=== PATIENT | female | born 2000 | race Caucasian/White ===

== ENCOUNTER 2023-04-10 06:28 | Day surgery (SDC) | payer MEDICAID ==
[2023-04-10] MEDS ORDERED: Lactated Ringers 1,000 ML IV SCH (07:00)
[2023-04-10] MEDS ORDERED: CEFAZOLIN 2 GM-D5W BAG** 2 GM/50 ML ML IV SCH (07:00)
[2023-04-10 07:07] VITALS: RESP 16
[2023-04-10] MEDS ORDERED: Zofran 4 MG/2 ML VIAL ONE (07:16)
[2023-04-10] MEDS ORDERED: Xylocaine-Mpf 2% 5 Ml Vial ONE (07:16)
[2023-04-10] MEDS ORDERED: Decadron 4 MG INJ ONE (07:16)
[2023-04-10] MEDS ORDERED: TORAdol 30 mg Injection ONE (07:16)
[2023-04-10] MEDS ORDERED: DIPRIVAN 200 MG/20 ML IV ONE ×2 (07:17→08:39)
[2023-04-10] MEDS ORDERED: Lactated Ringers 1,000 ML IV ONE (07:47)
[2023-04-10] MEDS ORDERED: Versed 2 MG/2 ML Injection ONE (08:20)
[2023-04-10] MEDS ORDERED: SUBLIMAZE 100 MCG/2 ML ONE ×2 (08:21→08:30)
[2023-04-10 09:55] VITALS: O2SAT 99
[2023-04-10 09:59] VITALS: BP 100/62; PULSE 59; TEMP 98.5
[2023-04-10] MEDS ORDERED: Rhogam Plus 300 MCG IM SCH (10:00)
--- NOTE | 2023-04-11 11:54 | OP ---
SURGERY DATE/TIME: 04/10/2023 0818 PREOPERATIVE DIAGNOSIS: Complete with retained products of conception. POSTOPERATIVE DIAGNOSIS: Complete with retained products of conception. PROCEDURE: Suction D&C. SURGEON: Diogo Casey D.O. CLIENT RETENTION SPECIALIST: Annita Harris clinical support tech. ANESTHESIA: General. ESTIMATED BLOOD LOSS: Minimal. COMPLICATIONS: None. INDICATIONS: The risks, benefits, indications and alternatives of the procedure were reviewed with the patient prior to procedure. The patient understood the risk of infection, bleeding, bowel injury, bladder injury, uterine perforation, pelvic infection and thromboembolic disorder associated with the surgery and desires to have this surgery as a possible means to alleviate her current medical condition. DESCRIPTION OF PROCEDURE AND FINDINGS: At this time the patient is taken to the operating room, given general sedation, placed in the dorsal lithotomy position, prepped and draped in the usual sterile fashion. A weighted speculum is then placed in the patient's vagina and the anterior lip of the cervix is grasped with a single tooth tenaculum. Endocervical dilators were advanced through the endocervical canal as a means to dilate the cervix. A #7 curved suction Vacurette was then placed into the fundus of the uterus where the machine was turned on for suctioning retrieving a moderate to extensive amount of products of conception. After complete suctioning the instrument was removed and the curette was then placed into the fundus of the uterus and curettage was performed in all quadrants of the uterus retrieving the remaining products of conception. From this point hemostasis was obtained. At this point all instruments were removed from the patient's vaginal region. The patient was then taken out of the dorsal lithotomy position, was taken out of anesthesia and was then taken to the recovery room in stable condition. All instruments and laps were accounted for x2.
== END 2023-04-10 10:05 | disposition home or self-care (01) ==
LOC: SDC 06:28
PROVIDERS: ATTEND Obstetrics & Gynecology
DX: O03.4 Incomplete spontaneous abortion without complication (principal)
CPT/HCPCS: 36415; 86901; J0690; J1100; J1885; J2250; J2405; J2704; J2790; J3010

== ENCOUNTER 2023-04-13 20:40 | Emergency (ER) | payer MEDICAID ==
--- NOTE | 2023-04-13 20:47 | ERPHSYRPT ---
- History of Present Illness Time Seen by Provider: 04/13/23 20:46 Source: patient Exam Limitations: no limitations Physician History: This is a 23-year-old white female patient who presents with bilateral lower extremity swelling and achiness after a D&C that was performed on 04/10/2023. Postoperatively, the patient had significant bleeding present and therefore was placed on tranexamic acid which slowed the bleeding significantly. She took 1 dose that evening and did not take another dose until this morning when she was having significant vaginal bleeding post D&C. Patient noticed her bilateral lower extremities swelling present approximately a day and a half ago and it has been persistently present. Her concern first was because of the pain that felt like her legs were being squeezed and also concerned there may be blood clot present. Patient is a daily smoker of cigarettes. She has no bleeding or clotting disorders. Occurred: days ago (1-2) Quality: constant Severity of Pain-Max: mild (To moderate) Severity of Pain-Current: mild (To moderate) Lower Extremities Pain: leg: bilateral, thigh: bilateral, foot: bilateral, an kle: bilateral Modifying Factors: Improves With: nothing Associated Symptoms: none Allergies/Adverse Reactions: No Known Drug Allergies Allergy (Verified 04/13/23 21:01) Home Medications: Tranexamic Acid 1,300 mg PO TID 04/13/23 [History] Travel Risk - International Travel Have you traveled outside of the country in past 3 weeks: No - Coronavirus Screening Are you exhibiting any of the following symptoms?: No Close contact with a COVID-19 positive Pt in past 14-21 Days: No - Review of Systems Constitutional: No Symptoms Eyes: No Symptoms Ears, Nose, & Throat: No Symptoms Respiratory: No Symptoms Cardiac: No Symptoms Abdominal/Gastrointestinal: No Symptoms Genitourinary Symptoms: No Symptoms Musculoskeletal: Other (Bilateral lower extremity swelling post D&C) Skin: No Symptoms Neurological: No Symptoms Psychological: No Symptoms Endocrine: No Symptoms Hematologic/Lymphatic: No Symptoms Immunological/Allergic: No Symptoms All Other Systems: Reviewed and Negative - Past Medical History Pertinent Past Medical History: Yes Neurological History: No Pertinent History ENT History: No Pertinent History Cardiac History: No Pertinent History Respiratory History: No Pertinent History Endocrine Medical History: No Pertinent History Musculoskeletal History: No Pertinent History GI Medical History: No Pertinent History History: No Pertinent History Psycho-Social History: No Pertinent History Female Reproductive Disorders: Other Other Medical History: COMPLETE MISCARRAGE WITH ERTAINED TISSUES - Past Surgical History Past Surgical History: Yes Neuro Surgical History: No Pertinent History Cardiac: No Pertinent History Respiratory: No Pertinent History Gastrointestinal: No Pertinent History Genitourinary: No Pertinent History Musculoskeletal: No Pertinent History Female Surgical History: No Pertinent History Other Surgical History: wisdom teeth - Social History Smoking Status: Current every day smoker How long have you smoked: 7 years Exposure to second hand smoke: Yes Drug Use: marijuana - Nursing Vital Signs Nursing Vital Signs: Initial Vital Signs Temperature 99 F 04/13/23 21:03 Pulse Rate 70 04/13/23 21:03 Respiratory Rate 16 04/13/23 21:03 Blood Pressure 116/64 04/13/23 21:03 O2 Sat by Pulse Oximetry 99 04/13/23 21:03 Pain Scale Pain Intensity 0 - Physical Exam General Appearance: no apparent distress, alert, anxiety, thin Eyes, Ears, Nose, Throat Exam: normal ENT inspection, moist mucous membranes Neck Exam: normal inspection, non-tender, supple, full range of motion Cardiovascular/Respiratory Exam: chest non-tender, no respiratory distress Gastrointestinal/Abdominal Exam: non-tender Back Exam: normal inspection, normal range of motion, No CVA tenderness, No vertebral tenderness Hips Exam: bilateral: non-tender, normal inspection, normal range of motion, no evidence of injury Legs Exam: bilateral leg: normal range of motion, no evidence of injury, soft tissue tenderness, swelling (Mild) Knees Exam: bilateral knee: non-tender, normal inspection, normal range of motion, no evidence of injury Ankle Exam: bilateral ankle: normal range of motion, no evidence of injury, soft tissue tenderness, swelling (Mild) Foot Exam: bilateral foot: normal range of motion, no evidence of injury, soft tissue tenderness, swelling (Mild) Neuro/Tendon Exam: normal sensation, normal motor functions, normal tendon functions, responds to pain, no evidence tendon injury Mental Status Exam: alert, oriented x 3, cooperative Skin Exam: normal color, warm, dry SpO2 Interpretation: normal O2 Delivery: Room Air - Course Nursing assessment & vital signs reviewed: Yes Ordered Tests: Active Orders 24 hr Category Date Time Status IV Insertion STAT Care 04/13/23 21:37 Active BMP Stat Lab 04/13/23 21:40 Completed CBC W DIFF Stat Lab 04/13/23 21:40 Completed D-DIMER QUANTITATIVE Stat Lab 04/13/23 21:40 Completed Lab/Rad Data: Laboratory Result Diagrams 04/13/23 21:40 04/13/23 21:40 Laboratory Results 04/13/23 04/13/23 04/13/23 Range/Units 21:40 21:40 21:40 WBC 7.8 (4.0-10.5) x10^3/uL RBC 3.25 L (4.1-5.4) x10^6/uL Hgb 10.7 L (12.0-16.0) g/dL Hct 31.2 L (35-47) % MCV 96.0 (78-100) fL MCH 32.9 H (26-32) pg MCHC 34.3 (32-36) g/dL RDW 12.8 (11.5-14.0) % Plt Count 196 (150-450) x10^3/uL MPV 10.7 (7.5-11.0) fL Gran % 53.4 (36.0-66.0) % Immature Gran % (Auto) 0.4 (0.00-0.4) % Nucleat RBC Rel Count 0.0 (0.00-0.1) % Eos # (Auto) 0.18 (0-0.5) x10^3/uL Immature Gran # (Auto) 0.03 (0.00-0.03) x10^3u/L Absolute Lymphs (auto) 2.57 (1.0-4.6) x10^3/uL Absolute Monos (auto) 0.81 (0.0-1.3) x10^3/uL Absolute Nucleated RBC 0.00 (0.00-0.01) x10^3u/L Lymphocytes % 33.0 (24.0-44.0) % Monocytes % 10.4 (0.0-12.0) % Eosinophils % 2.3 (0.00-5.0) % Basophils % 0.5 (0.0-0.4) % Absolute Granulocytes 4.15 (1.4-6.9) x10^3/uL Basophils # 0.04 (0-0.4) x10^3/uL D-Dimer 0.45 (0.0-0.50) mg/L Sodium 141 (137-145) mmol/L Potassium 3.6 (3.5-5.1) mmol/L Chloride 111 H (98-107) mmol/L Carbon Dioxide 24 (22-30) mmol/L Anion Gap 9.0 (5-15) MEQ/L BUN 11 (7-17) mg/dL Creatinine 0.81 (0.52-1.04) mg/dL Estimated GFR > 60.0 ML/MIN Glucose 104 (74-106) mg/dL Calcium 8.6 (8.4-10.2) mg/dL - Progress Progress Note: 04/13/23 21:43 This patient's medical issue is 1 of low to moderate complexity. Level complexity is based on review of the patient's past medical history, review the patient's medication list, review of the patient's drug allergy list, history of present illness and physical findings on examination. Work-up in this patient is to place an IV, obtain a D-dimer, CBC and BMP. If the D-dimer is elevated we will order an ultrasound of her bilateral lower extremities to evaluate for DVT. If the D-dimer is in the normal range patient was given instructions to massage her legs 2-3 times a day and use Tylenol and ibuprofen for pain control. 04/13/23 22:08 I interpreted the results of the patient's blood work and patient does not have an acute, emergent medical issue. Her D-dimer test is in the normal range. Hemoglobin is slightly low at 10.7. Patient does not require an ultrasound of bilateral lower extremities. Counseled pt/family regarding: lab results, diagnosis, need for follow-up Medical Desision Making - Independent Historian Additional History obtained from: Mother - Diagnostic Testing Diagnostic test were ordered, analyzed, and reviewed by me: Yes - Risk of complications Minimal Risk: Minimal risk of morbidity - Departure Departure Disposition: Home Clinical Impression: Swelling of both lower extremities Condition: Stable Critical Care Time: No Referrals: DOCTOR,NO FAMILY [Primary Care Provider] - Follow up/PCP as directed Additional Instructions: Drink plenty of fluids. Use Tylenol and ibuprofen for pain control. Elevate your legs above the level of your heart when not up and ambulating. Call your primary care provider on 04/16/2023 to make arranges for follow-up appointment in the next 3 days. Return to the emergency department if symptoms worsen.
[2023-04-13 21:10] VITALS: RESP 16; TEMP 99; O2SAT 99
[2023-04-13 21:47] LABS: Absolute Neutrophil Ct (ANC) 4.15 x10^3/uL (1.4-6.9); BASOPHIL % 0.5 % (0.0-0.4); Basophil (Absolute #) 0.04 x10^3/uL (0-0.4); Eosinophil % 2.3 % (0.00-5.0); Eosinophil (Absolute #) 0.18 x10^3/uL (0-0.5); Hematocrit 31.2 % (35-47); Hemoglobin 10.7 g/dL (12.0-16.0); IMMATURE GRAN # 0.03 x10^3u/L (0.00-0.03); IMMATURE GRAN % 0.4 % (0.00-0.4); Lymphocyte (Absolute #) 2.57 x10^3/uL (1.0-4.6); Mean Corpuscular Hemoglobin 32.9 pg (26-32); Mean Corpuscular Hgb Concent. 34.3 g/dL (32-36); Mean Platelet Volume 10.7 fL (7.5-11.0); Monocyte (Absolute #) 0.81 x10^3/uL (0.0-1.3); Monocytes % 10.4 % (0.0-12.0); Neutrophil % 53.4 % (36.0-66.0); Platelet Count 196 x10^3/uL (150-450); Red Blood Count 3.25 x10^6/uL (4.1-5.4); Red Cell Distribution Width 12.8 % (11.5-14.0); White Blood Count 7.8 x10^3/uL (4.0-10.5)
[2023-04-13 22:04] LABS: BLOOD UREA NITROGEN 11 mg/dL (7-17); CHLORIDE 111 mmol/L (98-107); Calcium 8.6 mg/dL (8.4-10.2); Carbon Dioxide 24 mmol/L (22-30); Creatinine 1 0.81 mg/dL (0.52-1.04); EST GLOMERULAR FILTRATION RATE > 60.0 ML/MIN; Glucose 104 mg/dL (74-106); Potassium 3.6 mmol/L (3.5-5.1); SODIUM 141 mmol/L (137-145)
[2023-04-13 22:11] VITALS: BP 102/51; PULSE 72
== END 2023-04-13 22:17 | disposition home or self-care (01) ==
LOC: ED 20:40
DX: M79.89 Other specified soft tissue disorders (principal); Z79.899 Other long term (current) drug therapy; Z72.0 Tobacco use
CPT/HCPCS: 36000; 36415; 80048; 85025; 85379; 99283

== ENCOUNTER 2023-04-14 18:57 | Emergency (ER) | payer MEDICAID ==
[2023-04-14 19:52] VITALS: TEMP 98.3
[2023-04-14] MEDS ORDERED: Sodium Chloride 0.9% 1000 ML 1,000 ML IV STA (20:04)
[2023-04-14] MEDS ORDERED: Sodium Chloride 0.9% 1000 ML 1,000 ML ONE (20:06)
--- NOTE | 2023-04-14 20:21 | ERPHSYRPT ---
- History of Present Illness Time Seen by Provider: 04/14/23 19:50 Source: patient Exam Limitations: no limitations Patient Subjective Stated Complaint: pt had a D&C per Dr Casey on 04/10/23 and she had "very heavy bleeding and clots after we left the hospital" and MD was notified and pt was given a script for TXA which she took 1 time and bleeding returned to just spotting. yesterday bleeding was increased more than spotting but "not concerning amount" so she took the TXA twice yesterday and twice today, when she woke up at 1829 "there was blood everywhere and a lot of really big clots" so they called Dr Casey who told them to come to the ED for an ULS. pt states she has been changing her pad approx every 20mins. pt also states since 1829 she has had 10/10 pain to bilat lower abd that radiates thru pelvis and rectum that she describes "like a gas bubble but like in my butt instead of my belly" Triage Nursing Assessment: pt ambulated to room 7 independently with slow steady gait. pt is alert and oriented times three, able to speak in complete sentences, able to move all extremities, and with resp even and unlabored. skin warm dry and intact. abd soft, flat, nondistended, and tender to touch with positive bowel sounds in all quadrants. pt states last BM was this morning and it was normal for her. denies vomiting, sob, difficulty breathing, lightheadedness, dizziness, or other ill feelings. reports since has been slightly nauseated since 1829. Physician History: 23yo F presents for vaginal bleeding that started today around 18:00. Pt is POD 5 following D&C by Dr Casey for miscarriage. Pt states she woke up from a nap and had significant amount of dark red blood and clots in her underwear. Pt reports several other episodes of heavy bleeding since her procedure, was prescribed TXA by Dr Casey which did help initially. Pt currently reports some mild suprapubic pain but denies vaginal pain or recent trauma/intercourse. Pt denies cp, soa, n/v. Pt was seen in ED on 04/13 for LE edema that has since resolved. Timing/Duration: today, hour(s) (2) Activites at Onset: sleep Quality: cramping Onset Location: suprapubic Pain Radiation: none Severity of Pain-Max: mild Severity of Pain-Current: mild Prior abdominal problems: other (D&C on 04/10/[address] Casey) Sexual intercourse history: non-contributory Modifying Factors: Improves With: nothing Associated Symptoms: abdominal pain Allergies/Adverse Reactions: No Known Drug Allergies Allergy (Verified 04/14/23 19:29) Home Medications: Tranexamic Acid 1,300 mg PO TID 04/13/23 [History] Hx Tetanus, Diphtheria Vaccination/Date Given: Yes Hx Influenza Vaccination/Date Given: No Hx Pneumococcal Vaccination/Date Given: No Travel Risk - International Travel Have you traveled outside of the country in past 3 weeks: No - Coronavirus Screening Are you exhibiting any of the following symptoms?: No Close contact with a COVID-19 positive Pt in past 14-21 Days: No - Vaccine Status Have you recieved a Covid-19 vaccination: No - Review of Systems Constitutional: No Fever, No Chills Respiratory: No Cough, No Dyspnea Abdominal/Gastrointestinal: Abdominal Pain Genitourinary Symptoms: Vaginal Bleeding - Past Medical History Pertinent Past Medical History: Yes Neurological History: No Pertinent History ENT History: No Pertinent History Cardiac History: No Pertinent History Respiratory History: No Pertinent History Endocrine Medical History: No Pertinent History Musculoskeletal History: No Pertinent History GI Medical History: No Pertinent History History: No Pertinent History Psycho-Social History: No Pertinent History Female Reproductive Disorders: Other Other Medical History: COMPLETE MISCARRAGE WITH ERTAINED TISSUES - Past Surgical History Past Surgical History: Yes Neuro Surgical History: No Pertinent History Cardiac: No Pertinent History Respiratory: No Pertinent History Gastrointestinal: No Pertinent History Genitourinary: No Pertinent History Musculoskeletal: No Pertinent History Female Surgical History: Dilation & Curettage Other Surgical History: wisdom teeth - Social History Smoking Status: Current every day smoker How long have you smoked: 2015 Exposure to second hand smoke: Yes Drug Use: marijuana Patient Lives Alone: No - Female History Hx Last Menstrual Period: December 25 2022 Hx Now: No - Nursing Vital Signs Nursing Vital Signs: Initial Vital Signs Temperature 98.3 F 04/14/23 19:30 Pulse Rate 73 04/14/23 19:30 Respiratory Rate 16 04/14/23 19:30 Blood Pressure 138/93 04/14/23 19:30 O2 Sat by Pulse Oximetry 100 04/14/23 19:30 Pain Scale Pain Intensity 4 - Physical Exam General Appearance: no apparent distress, alert Respiratory Exam: normal breath sounds, lungs clear, No respiratory distress Cardiovascular Exam: regular rate/rhythm, normal heart sounds, normal peripheral pulses Gastrointestinal/Abdomen Exam: soft, tenderness (mild TTP over suprapubic region, uterus firm) Pelvic Exam: other (speculum exam - dark red blood in posterior fornix, small volume dark red blood per cervical os; uterus palpable, slightly boggy) SpO2: 100 Ordered Tests: Active Orders 24 hr Category Date Time Status IV Insertion STAT Care 04/14/23 20:04 Active PELVIS TRANS VAGINAL [US] Stat Exams 04/14/23 19:58 Completed CBC W DIFF Stat Lab 04/14/23 20:21 Completed CMP Stat Lab 04/14/23 20:21 Completed Medication Summary Discontinued Medications Generic Name Dose Route Start Last Admin Trade Name Jamesq PRN Reason Stop Dose Admin Sodium Chloride 1,000 mls @ 999 mls/hr 04/14/23 20:04 04/14/23 21:33 Sodium Chloride 0.9% 1000 Ml IV 04/14/23 21:04 Infused .Q1H1M STA Infusion Sodium Chloride Confirm 04/14/23 20:06 Sodium Chloride 0.9% 1000 Ml Administered 04/14/23 20:07 Dose 1,000 mls @ ud .ROUTE .STK-MED ONE Methylergonovine Maleate 0.2 mg 04/14/23 21:30 04/14/23 21:54 Methylergonovine Maleate 0.2 Mg/Ml Ml IM 04/14/23 21:31 0.2 mg ONCE ONE Administration Ondansetron HCl 4 mg 04/14/23 22:35 04/14/23 22:36 Ondansetron Hcl 4 Mg/2 Ml Vial IV 04/14/23 22:36 4 mg STAT ONE Administration Ondansetron HCl Confirm 04/14/23 22:35 Ondansetron Hcl 4 Mg/2 Ml Vial Administered 04/14/23 22:36 Dose 4 mg .ROUTE .STK-MED ONE Lab/Rad Data: Laboratory Result Diagrams 04/14/23 20:21 04/14/23 20:21 Laboratory Results 04/14/23 04/14/23 Range/Units 20:21 20:21 WBC 9.0 (4.0-10.5) x10^3/uL RBC 3.68 L (4.1-5.4) x10^6/uL Hgb 12.1 (12.0-16.0) g/dL Hct 35.8 (35-47) % MCV 97.3 (78-100) fL MCH 32.9 H (26-32) pg MCHC 33.8 (32-36) g/dL RDW 13.2 (11.5-14.0) % Plt Count 218 (150-450) x10^3/uL MPV 11.1 H (7.5-11.0) fL Gran % 61.4 (36.0-66.0) % Immature Gran % (Auto) 0.3 (0.00-0.4) % Nucleat RBC Rel Count 0.0 (0.00-0.1) % Eos # (Auto) 0.21 (0-0.5) x10^3/uL Immature Gran # (Auto) 0.03 (0.00-0.03) x10^3u/L Absolute Lymphs (auto) 2.43 (1.0-4.6) x10^3/uL Absolute Monos (auto) 0.79 (0.0-1.3) x10^3/uL Absolute Nucleated RBC 0.00 (0.00-0.01) x10^3u/L Lymphocytes % 26.9 (24.0-44.0) % Monocytes % 8.7 (0.0-12.0) % Eosinophils % 2.3 (0.00-5.0) % Basophils % 0.4 (0.0-0.4) % Absolute Granulocytes 5.53 (1.4-6.9) x10^3/uL Basophils # 0.04 (0-0.4) x10^3/uL Sodium 141 (137-145) mmol/L Potassium 4.1 (3.5-5.1) mmol/L Chloride 111 H (98-107) mmol/L Carbon Dioxide 25 (22-30) mmol/L Anion Gap 8.5 (5-15) MEQ/L BUN 12 (7-17) mg/dL Creatinine 0.74 (0.52-1.04) mg/dL Estimated GFR > 60.0 ML/MIN Glucose 94 (74-106) mg/dL Calcium 8.9 (8.4-10.2) mg/dL Total Bilirubin 0.30 (0.2-1.3) mg/dL AST 29 (14-36) U/L ALT 20 (0-35) U/L Alkaline Phosphatase 63 (38-126) U/L Serum Total Protein 7.0 (6.3-8.2) g/dL Albumin 4.1 (3.5-5.0) g/dL - Progress Progress: improved Air Movement: good Progress Note: I discussed pt case w/ Dr Casey who recommended giving methergine 0.2mg IM once in ED, then dc w/ 4 doses that can be taken q6h for bleeding, plan for f/u in his office on 04/16/23 US showed thickened endometrium, no ovarian torsion, no obvious retained products in uterus plan for dc home Blood Culture(s) Obtained: No Antibiotics given: No Discussed with Dr.: Other (Dr Casey) Will see patient in: office Counseled pt/family regarding: lab results, diagnosis, need for follow-up, rad results Medical Desision Making - Discussion of managment Care discussed with:: specialist (OB Dr Casey) Reviewed:: Test results, Need for additional workup Agreed on:: Treatment plan (methergine q6h prn 4 doses for bleeding, will see in office on sunday04/16/23), need for follow-up Will see patient: In office - Diagnostic Testing Diagnostic test were ordered, analyzed, and reviewed by me: Yes Radiological Interpretation: Reviewed by me, Teleradiologist Report - Risk of complications Low Risk: Low risk of morbidity from additional dx testing or treatment - Departure Departure Disposition: Home Clinical Impression: Vaginal bleeding Condition: Stable Critical Care Time: No Referrals: ADELINE CASEY DO [Primary Care Provider] - Follow up/PCP as directed Additional Instructions: Methergine 4 doses sent to pharmacy, can take every [address] Casey's office on Sunday at 10am to get scheduled for appointment
[2023-04-14 20:24] LABS: Absolute Neutrophil Ct (ANC) 5.53 x10^3/uL (1.4-6.9); BASOPHIL % 0.4 % (0.0-0.4); Basophil (Absolute #) 0.04 x10^3/uL (0-0.4); Eosinophil % 2.3 % (0.00-5.0); Eosinophil (Absolute #) 0.21 x10^3/uL (0-0.5); Hematocrit 35.8 % (35-47); Hemoglobin 12.1 g/dL (12.0-16.0); IMMATURE GRAN # 0.03 x10^3u/L (0.00-0.03); IMMATURE GRAN % 0.3 % (0.00-0.4); Lymphocyte (Absolute #) 2.43 x10^3/uL (1.0-4.6); Lymphocytes % 26.9 % (24.0-44.0); Mean Cell Volume 97.3 fL (78-100); Mean Corpuscular Hemoglobin 32.9 pg (26-32); Mean Corpuscular Hgb Concent. 33.8 g/dL (32-36); Mean Platelet Volume 11.1 fL (7.5-11.0); Monocyte (Absolute #) 0.79 x10^3/uL (0.0-1.3); Monocytes % 8.7 % (0.0-12.0); Neutrophil % 61.4 % (36.0-66.0); Platelet Count 218 x10^3/uL (150-450); Red Blood Count 3.68 x10^6/uL (4.1-5.4); Red Cell Distribution Width 13.2 % (11.5-14.0)
[2023-04-14 20:39] LABS: ALBUMIN 4.1 g/dL (3.5-5.0); ALKALINE PHOSPHATASE 63 U/L (38-126); ANION GAP 8.5 MEQ/L (5-15); BLOOD UREA NITROGEN 12 mg/dL (7-17); CHLORIDE 111 mmol/L (98-107); Calcium 8.9 mg/dL (8.4-10.2); Carbon Dioxide 25 mmol/L (22-30); Creatinine 1 0.74 mg/dL (0.52-1.04); EST GLOMERULAR FILTRATION RATE > 60.0 ML/MIN; Glucose 94 mg/dL (74-106); Potassium 4.1 mmol/L (3.5-5.1); SGOT/AST 29 U/L (14-36); SGPT/ALT 20 U/L (0-35); SODIUM 141 mmol/L (137-145)
--- NOTE | 2023-04-14 21:28 | XRAY ---
Indication: Vaginal bleeding. 5 days status post D&C. Two-dimensional transvaginal pelvic sonogram performed. Comparison: April 05, 2023 Uterus again retroverted measuring 7.9 x 4.9 x 5.5 cm. Previous intrauterine gestational sac absent consistent with recent D&C. Thickened endometrial stripe measuring 2.1 cm, probable blood products/clots. No endometrial cavity fluid collection. Right ovary measures 2.8 x 1.4 x 3.8 cm and left measures 3.3 x 1.9 x 2.7 cm. Normal follicular cysts in perfusion bilaterally. Tiny nonspecific left adnexa free fluid. No suspicious adnexal mass. Impression: Status post D&C with thickened endometrial stripe, probable blood products/clots. Tiny nonspecific left adnexa free fluid. Comment: Preliminary report was given.
[2023-04-14] MEDS ORDERED: Methergine IM ONE (21:30)
[2023-04-14] MEDS ORDERED: Zofran 4 MG/2 ML VIAL ONE (22:35)
[2023-04-14] MEDS ORDERED: Zofran 4 MG/2 ML VIAL IV ONE (22:35)
[2023-04-14 23:05] VITALS: PULSE 62
[2023-04-14 23:45] VITALS: BP 120/82; RESP 18
[2023-04-14 23:58] VITALS: O2SAT 100
== END 2023-04-15 00:03 | disposition home or self-care (01) ==
LOC: ED 18:57
DX: N93.9 Abnormal uterine and vaginal bleeding, unspecified (principal); R10.2 Pelvic and perineal pain; Z79.899 Other long term (current) drug therapy; Z28.310 Unvaccinated for COVID-19; Z72.0 Tobacco use
CPT/HCPCS: 36000; 36415; 76830; 80053; 85025; 96360; 96372; 96374; 99284; J1330; J2405

== ENCOUNTER 2024-03-07 09:58 | Emergency (ER) | payer OTHER ==
[2024-03-07 10:25] VITALS: PULSE 72; RESP 16; TEMP 98.2
--- NOTE | 2024-03-07 10:36 | ERPHSYRPT ---
- History of Present Illness Time Seen by Provider: 03/07/24 10:27 Historian: patient Exam Limitations: no limitations Patient Subjective Stated Complaint: pt states she vomting x3 yesterday, she states had some blood tinged liquid the last time she vomited, started her pe riod yesterday after being several days late Triage Nursing Assessment: pt alert, resp easy, skin w/d/p. abd flat, no edema noted, moves all ext well Physician History: Yesterday about 11.5 hours ago pt has had vomiting x3, generalized abdominal cr amps 3/10 in severity and anterior chest pain when vomiting; the abdominal cramps have persisted to today; LBM was yesterday & diarrhea(pt states she has had chronic diarrhea for years). Pt denies shortness of air, fever, cough. Pt states she started her period yesterday(spotting). Allergies/Adverse Reactions: No Known Drug Allergies Allergy (Verified 03/07/24 10:20) Hx Tetanus, Diphtheria Vaccination/Date Given: No Hx Influenza Vaccination/Date Given: No Hx Pneumococcal Vaccination/Date Given: No Immunizations Up to Date: Yes Travel Risk - International Travel Have you traveled outside of the country in past 3 weeks: No - Emerging Infectious Disease Are you exhibiting symptoms associated with any current EIDs: Yes Symptoms: Vomitting - Review of Systems Constitutional: No Fever Respiratory: No Cough, No Dyspnea Cardiac: Chest Pain Abdominal/Gastrointestinal: Abdominal Pain, Vomiting, Diarrhea Neurological: No Headache - Past Medical History Pertinent Past Medical History: No Neurological History: No Pertinent History ENT History: No Pertinent History Cardiac History: No Pertinent History Respiratory History: No Pertinent History Endocrine Medical History: No Pertinent History Musculoskeletal History: No Pertinent History GI Medical History: No Pertinent History History: No Pertinent History Psycho-Social History: No Pertinent History Female Reproductive Disorders: Other Other Medical History: COMPLETE MISCARRAGE WITH ERTAINED TISSUES - Past Surgical History Past Surgical History: Yes Neuro Surgical History: No Pertinent History Cardiac: No Pertinent History Respiratory: No Pertinent History Gastrointestinal: No Pertinent History Genitourinary: No Pertinent History Musculoskeletal: No Pertinent History Female Surgical History: Dilation & Curettage Other Surgical History: wisdom teeth - Female History Hx Last Menstrual Period: now Hx Now: No - Social History Smoking Status: Current every day smoker How long have you smoked: 1/2 Exposure to second hand smoke: No Drug Use: marijuana Patient Lives Alone: No - Social Determinants of Health Will the patient participate in the screening: Yes Do you worry about a steady place to live?: No Do you have any problems with any of the following?: No known problems In the past 12 months,have you had to go without utilities?: No Transportation Issues: No Has anyone in your support network made you feel unsafe?: No Have you or anyone in your house had to go without enough: No - Nursing Vital Signs Nursing Vital Signs: Initial Vital Signs Blood Pressure 123/90 03/07/24 10:16 O2 Sat by Pulse Oximetry 98 03/07/24 10:16 Pain Scale Pain Intensity 4 - Physical Exam General Appearance: alert Eye Exam: PERRL/EOMI Ears, Nose, Throat Exam: pharynx normal Neck Exam: normal inspection Respiratory Exam: lungs clear Cardiovascular Exam: normal heart sounds Gastrointestinal/Abdomen Exam: normal bowel sounds Extremity Exam: No pedal edema Neurologic Exam: alert, cooperative Skin Exam: warm, dry SpO2 Interpretation: normal SpO2: 98 O2 Delivery: Room Air - Course Nursing assessment & vital signs reviewed: Yes EKG Interpreted by Me: RATE (68), Sinus Rhythm, Right Delton Deviation, Other (QTc = 416) - Radiology Exams Chest X-ray Interpretation: Discussed w/ radiologist (Normal heart, lungs and bony thorax.) Ordered Tests: Active Orders 24 hr Category Date Time Status EKG-ER Only STAT Care 03/07/24 10:42 Active IV Insertion STAT Care 03/07/24 10:40 Active CHEST 2 VIEWS (PA AND LAT) Stat Exams 03/07/24 10:42 Completed AMYLASE Stat Lab 03/07/24 10:55 Completed CBC W DIFF Stat Lab 03/07/24 10:55 Completed CMP Stat Lab 03/07/24 10:55 Completed HCG QUALITATIVE, SERUM Stat Lab 03/07/24 10:55 Completed LIPASE Stat Lab 03/07/24 10:55 Completed MAGNESIUM Stat Lab 03/07/24 10:55 Completed PROTIME WITH INR Stat Lab 03/07/24 10:55 Completed PTT Stat Lab 03/07/24 10:55 Completed TROPONIN Q4H Lab 03/07/24 10:55 Completed TROPONIN Q4H Lab 03/07/24 14:45 Ordered TROPONIN Q4H Lab 03/07/24 18:45 Ordered UA W/RFX UR CULTURE Stat Lab 03/07/24 10:55 Completed Medication Summary Discontinued Medications Generic Name Dose Route Start Last Admin Trade Name Kelly PRN Reason Stop Dose Admin Sodium Chloride 1,000 mls @ 999 mls/hr 03/07/24 10:40 03/07/24 12:42 Sodium Chloride 0.9% 1000 Ml IV 03/07/24 11:40 Infused .Q1H1M STA Infusion Sodium Chloride Confirm 03/07/24 11:09 Sodium Chloride 0.9% 1000 Ml Administered 03/07/24 11:10 Dose 1,000 mls @ ud .ROUTE .STK-MED ONE Lab/Rad Data: Laboratory Result Diagrams 03/07/24 10:55 03/07/24 10:55 Laboratory Results 03/07/24 03/07/24 03/07/24 Range/Units 10:55 10:55 10:55 WBC (3.98-10.04) x10^3/uL RBC (3.93-5.22) x10^6/uL Hgb (11.2-15.7) g/dL Hct (34.1-44.9) % MCV (79.4-94.8) fL MCH (25.6-32.2) pg MCHC (32.2-35.5) g/dL RDW (11.7-14.4) % Plt Count (182-369) x10^3/uL MPV (9.4-12.3) fL Gran % (34.0-71.1) % Immature Gran % (Auto) (0.001-0.429) % Nucleat RBC Rel Count (0.00-0.2) % Eos # (Auto) (0.04-0.36) x10^3/uL Immature Gran # (Auto) (0.001-0.031) x10^3u/L Absolute Lymphs (auto) (1.18-3.74) x10^3/uL Absolute Monos (auto) (0.24-0.86) x10^3/uL Absolute Nucleated RBC (0.00-0.012) x10^3u/L Lymphocytes % (19.3-51.7) % Monocytes % (4.7-12.5) % Eosinophils % (0.7-5.8) % Basophils % (0.1-1.2) % Absolute Granulocytes (1.56-6.13) x10^3/uL Basophils # (0.01-0.08) x10^3/uL PT 10.9 (9.4-12.5) SECONDS INR 1.00 (0.8-3.0) APTT 28.7 (25.1-36.5) SECONDS Sodium (135-145) mmol/L Potassium (3.5-5.1) mmol/L Chloride (98-107) mmol/L Carbon Dioxide (22-30) mmol/L Anion Gap (5-15) MEQ/L BUN (7-17) mg/dL Creatinine (0.52-1.04) mg/dL Estimated GFR ML/MIN Glucose (74-106) mg/dL Calcium (8.4-10.2) mg/dL Magnesium (1.6-2.3) mg/dL Total Bilirubin (0.2-1.3) mg/dL AST (14-36) U/L ALT (0-35) U/L Alkaline Phosphatase (38-126) U/L Troponin I < 0.012 (0.000-0.033) ng/mL Serum Total Protein (6.3-8.2) g/dL Albumin (3.5-5.0) g/dL Amylase (30-110) U/L Lipase (23-300) U/L Serum HCG, Qual NEGATIVE (NEGATIVE) Urine Color (Yellow) Urine Appearance (Clear) Urine pH (4.6-8.0) Ur Specific [place] (1.005-1.030) Urine Protein (Negative) Urine Glucose (UA) (Negative) mg/dL Urine Ketones (Negative) Urine Blood (Negative) Urine Nitrite (Negative) Urine Bilirubin (Negative) Urine Urobilinogen (0.2) mg/dL Ur Leukocyte Esterase (Negative) U Hyaline Cast (Auto) (0-2) /LPF Urine Microscopic RBC (0-5) /HPF Urine Microscopic WBC (0-5) /HPF Ur Epithelial Cells (None Seen) /HPF Urine Bacteria (None Seen) /HPF Urine Culture Reflexed (NO) 03/07/24 03/07/24 03/07/24 Range/Units 10:55 10:55 10:55 WBC 6.1 (3.98-10.04) x10^3/uL RBC 3.86 L (3.93-5.22) x10^6/uL Hgb 12.0 (11.2-15.7) g/dL Hct 35.0 (34.1-44.9) % MCV 90.7 (79.4-94.8) fL MCH 31.1 (25.6-32.2) pg MCHC 34.3 (32.2-35.5) g/dL RDW 13.6 (11.7-14.4) % Plt Count 229 (182-369) x10^3/uL MPV 10.7 (9.4-12.3) fL Gran % 65.7 (34.0-71.1) % Immature Gran % (Auto) 0.3 (0.001-0.429) % Nucleat RBC Rel Count 0.0 (0.00-0.2) % Eos # (Auto) 0.10 (0.04-0.36) x10^3/uL Immature Gran # (Auto) 0.02 (0.001-0.031) x10^3u/L Absolute Lymphs (auto) 1.36 (1.18-3.74) x10^3/uL Absolute Monos (auto) 0.59 (0.24-0.86) x10^3/uL Absolute Nucleated RBC 0.00 (0.00-0.012) x10^3u/L Lymphocytes % 22.4 (19.3-51.7) % Monocytes % 9.7 (4.7-12.5) % Eosinophils % 1.6 (0.7-5.8) % Basophils % 0.3 (0.1-1.2) % Absolute Granulocytes 3.99 (1.56-6.13) x10^3/uL Basophils # 0.02 (0.01-0.08) x10^3/uL PT (9.4-12.5) SECONDS INR (0.8-3.0) APTT (25.1-36.5) SECONDS Sodium 138 (135-145) mmol/L Potassium 3.9 (3.5-5.1) mmol/L Chloride 109 H (98-107) mmol/L Carbon Dioxide 22 (22-30) mmol/L Anion Gap 10.7 (5-15) MEQ/L BUN 19 H (7-17) mg/dL Creatinine 0.79 (0.52-1.04) mg/dL Estimated GFR 107.7 ML/MIN Glucose 95 (74-106) mg/dL Calcium 8.9 (8.4-10.2) mg/dL Magnesium 1.9 (1.6-2.3) mg/dL Total Bilirubin 0.60 (0.2-1.3) mg/dL AST 28 (14-36) U/L ALT 23 (0-35) U/L Alkaline Phosphatase 55 (38-126) U/L Troponin I (0.000-0.033) ng/mL Serum Total Protein 6.6 (6.3-8.2) g/dL Albumin 4.0 (3.5-5.0) g/dL Amylase 66 (30-110) U/L Lipase 93 (23-300) U/L Serum HCG, Qual (NEGATIVE) Urine Color Yellow (Yellow) Urine Appearance Clear (Clear) Urine pH 6.5 (4.6-8.0) Ur Specific [place] 1.025 (1.005-1.030) Urine Protein 30 (Negative) Urine Glucose (UA) Negative (Negative) mg/dL Urine Ketones Negative (Negative) Urine Blood Moderate A (Negative) Urine Nitrite Negative (Negative) Urine Bilirubin Negative (Negative) Urine Urobilinogen 0.2 (0.2) mg/dL Ur Leukocyte Esterase Negative (Negative) U Hyaline Cast (Auto) NONE SEEN (0-2) /LPF Urine Microscopic RBC 21-50 A (0-5) /HPF Urine Microscopic WBC 0-2 (0-5) /HPF Ur Epithelial Cells Rare (None Seen) /HPF Urine Bacteria None Seen (None Seen) /HPF Urine Culture Reflexed NO (NO) - Progress Progress: improved Counseled pt/family regarding: lab results, diagnosis, need for follow-up, rad results Medical Desision Making - Diagnostic Testing Diagnostic test were ordered, analyzed, and reviewed by me: Yes Radiological Interpretation: Discussed w/ radiologist - Departure Departure Disposition: Home Clinical Impression: Abdominal pain, Vomiting, Diarrhea, Chest pain Condition: Stable Critical Care Time: No Referrals: AVILA AVALOS MD [Primary Care Provider] - Follow up/PCP as directed Instructions: Nausea and Vomiting, Adult ED, Diarrhea, Adult ED, Abdominal Pain, Adult ED Additional Instructions: Follow up with private doctor tomorrow. Prescriptions: Ondansetron ODT 4 MG [Zofran Odt 4 mg] 4 mg PO Q6H PRN PRN #10 tablet PRN Reason: Nausea
[2024-03-07 11:00] LABS: Absolute Neutrophil Ct (ANC) 3.99 x10^3/uL (1.56-6.13); BASOPHIL % 0.3 % (0.1-1.2); Basophil (Absolute #) 0.02 x10^3/uL (0.01-0.08); Eosinophil % 1.6 % (0.7-5.8); IMMATURE GRAN # 0.02 x10^3u/L (0.001-0.031); IMMATURE GRAN % 0.3 % (0.001-0.429); Lymphocyte (Absolute #) 1.36 x10^3/uL (1.18-3.74); Lymphocytes % 22.4 % (19.3-51.7); Mean Cell Volume 90.7 fL (79.4-94.8); Mean Corpuscular Hemoglobin 31.1 pg (25.6-32.2); Mean Corpuscular Hgb Concent. 34.3 g/dL (32.2-35.5); Mean Platelet Volume 10.7 fL (9.4-12.3); Monocyte (Absolute #) 0.59 x10^3/uL (0.24-0.86); Monocytes % 9.7 % (4.7-12.5); Neutrophil % 65.7 % (34.0-71.1); Platelet Count 229 x10^3/uL (182-369); Red Blood Count 3.86 x10^6/uL (3.93-5.22); Red Cell Distribution Width 13.6 % (11.7-14.4); White Blood Count 6.1 x10^3/uL (3.98-10.04)
[2024-03-07] MEDS ORDERED: Sodium Chloride 0.9% 1000 ML 1,000 ML ONE (11:09)
[2024-03-07] MEDS: Sodium Chloride 0.9% 1000 ML 1,000 ML IV STA (11:14)
[2024-03-07 11:15] LABS: ANION GAP 10.7 MEQ/L (5-15); BILIRUBIN,TOTAL 0.6 mg/dL (0.2-1.3); Calcium 8.9 mg/dL (8.4-10.2); Creatinine 1 0.79 mg/dL (0.52-1.04); EST GLOMERULAR FILTRATION RATE 107.7 ML/MIN; MAGNESIUM 1.9 mg/dL (1.6-2.3); Potassium 3.9 mmol/L (3.5-5.1); Total Protein 6.6 g/dL (6.3-8.2)
[2024-03-07 11:16] LABS: PROTIME 10.9 SECONDS (9.4-12.5); PTT 28.7 SECONDS (25.1-36.5)
[2024-03-07 11:19] LABS: HCG SERUM TEST NEGATIVE (NEGATIVE)
[2024-03-07 11:23] LABS: Appearance Clear (Clear); Bacteria None Seen /HPF (None Seen); Bilirubin Negative (Negative); Blood Moderate (Negative); Epithelial Cells Rare /HPF (None Seen); Glucose, Urine Negative (Negative); Hyaline Casts NONE SEEN /LPF (0-2); Ketones Negative (Negative); Leukocyte Esterase Negative (Negative); Nitrite Negative (Negative); Ph 6.5 (4.6-8.0); Protein,Urine Dip 30 (Negative); RBC 21-50 /HPF (0-5); Specific Gravity 1.025 (1.005-1.030); Urobilinogen 0.2 mg/dL (0.2); WBC 0-2 /HPF (0-5)
[2024-03-07 11:38] LABS: ADD URINE CULTURE? NO (NO)
--- NOTE | 2024-03-07 12:30 | XRAY ---
Indication: Chest pain. Comparison: None PA/lateral chest demonstrates normal heart, lungs, and bony thorax.
[2024-03-07 13:37] VITALS: O2SAT 98
[2024-03-07 13:41] VITALS: BP 102/61
== END 2024-03-07 13:47 | disposition home or self-care (01) ==
LOC: ED 09:58
DX: R11.10 Vomiting, unspecified (principal); R10.9 Unspecified abdominal pain; R19.7 Diarrhea, unspecified; R07.9 Chest pain, unspecified; F17.200 Nicotine dependence, unspecified, uncomplicated
CPT/HCPCS: 36000; 36415; 71046; 80053; 81001; 82150; 83690; 83735; 84484; 84703; 85025; 85610; 85730; 93005; 96360; 99284